=== PATIENT | male | born 1965 | race Caucasian/White ===

== ENCOUNTER 2017-06-24 01:57 | Inpatient (IN) | payer BC, OTHER ==
[~2017-06-24] VITALS: Ht 185.4 cm; Wt 82.8 kg
[2017-06-24] VITALS (19 sets, daily range): BP systolic 116–161; BP diastolic 66–82; PULSE 102–133; RESP 16–27; TEMP 97.3–99.4; O2SAT 87–95
[~2017-06-24 01:57] MED LIST: ADVAI500I PO; BENT20TA PO; CLOP75 PO; DUONI NEB; FLUT50I NASAL; PRED10 PO; SERO200T2 PO; SIME80CH CHEW; SUMA6P SQ
[2017-06-24] MEDS ORDERED: RESP: ALBUTEROL 2.5 MG/IPRATROPIUM 0.5 MG NEB (PRN) ONE (02:09)
[2017-06-24] MEDS: RESP: ALBUTEROL 2.5 MG/IPRATROPIUM 0.5 MG NEB (SCH) INH ×2 (02:14→02:15)
[2017-06-24] MEDS ORDERED: methylPREDNISolone SOD SUCC 125 MG/2 ML VIAL IVP ONE (02:15)
[2017-06-24] MEDS ORDERED: SODIUM CHLORIDE 0.9% FLUSH 10 ML FLUSH IVF PRN ×2 (02:15→10:00)
[2017-06-24 02:29] LABS: BLOOD GAS BASE EXCESS -0.2 mmol/L (-2-2); BLOOD GAS CARBOXYHEMOGLOBIN 1.5 % (0-4); BLOOD GAS HCO3 24 mmol/L (22-26); BLOOD GAS O2 HGB SATURATION 95 % (90-100); BLOOD GAS OXYGEN CONTENT 20.7 Vol % (12.0-20.0); BLOOD GAS PCO2 42 mmHG (38-42); BLOOD GAS PO2 92 mmHG (61-120); BLOOD GAS TOTAL HGB 15.5 G/DL (12.0-16.0); CRITICAL VALUE NO; DRAW SITE LT RADIAL; LITER FLOW 8 L/M; NUMBER OF ARTERIAL PUNCTURES 1; STAT YES; TEMP CORR TO 98.6; ULNAR PULSE PRESENT
[2017-06-24 02:30] LABS: OXYGEN DEVICE NEB TREATMENT
[2017-06-24 02:31] LABS: AUTOMATED NEUTROPHIL # 6.1 TH/MM3 (1.8-7.7); BASOPHIL # 0.1 TH/MM3 (0-0.2); EOSINOPHIL # 1.6 TH/MM3 (0-0.4); EOSINOPHIL % 16.8 % (0.0-4.0); HEMATOCRIT 45.6 % (39.0-51.0); HEMO FLAGS DIFF FINAL; LYMPHOCYTE # 0.9 TH/MM3 (1.0-4.8); MEAN CORPUSCULAR HEMOGLOBIN 31.3 PG (27.0-34.0); MONO % 6.4 % (0.0-8.0); NEUT % 65.8 % (16.0-70.0); PLATELET COUNT 217 TH/MM3 (150-450); RED BLOOD COUNT 4.96 MIL/MM3 (4.50-5.90); RED CELL DISTRIBUTION WIDTH 12.5 % (11.6-17.2); WHITE BLOOD COUNT 9.3 TH/MM3 (4.0-11.0)
[2017-06-24 02:42] LABS: CHLORIDE 107 MEQ/L (98-107); POTASSIUM 3.7 MEQ/L (3.5-5.1); SODIUM (NA) 139 MEQ/L (136-145)
[2017-06-24 02:46] LABS: ANION GAP 10 MEQ/L (5-15); BICARBONATE 22.2 MEQ/L (21.0-32.0); BLOOD UREA NITROGEN 14 MG/DL (7-18)
[2017-06-24 02:47] LABS: APTT (PATIENT) 26.4 SEC (24.3-30.1); PROTHROMBIN TIME - PATIENT 10.7 SEC (9.8-11.6)
[2017-06-24 02:49] LABS: ALT (GPT) 34 U/L (12-78); AST (GOT) 22 U/L (15-37); GLOMERULAR FILTRATION RATE 64 ML/MIN (>89)
[2017-06-24 02:50] LABS: TOTAL BILIRUBIN ADULT 0.6 MG/DL (0.2-1.0)
[2017-06-24 02:51] LABS: CREATINE KINASE 120 U/L (39-308)
[2017-06-24 02:52] LABS: ALKALINE PHOSPHATASE 57 U/L (45-117)
--- NOTE | 2017-06-24 03:00 | RADRPT ---
EXAM DATE/TIME: 06/24/2017 02:43 [facility] COMPARISON: CHEST SINGLE AP, July 17, 2016, 12:35. INDICATIONS : Shortness of breath. MEDICAL HISTORY : Gastroesophageal reflux disease. Asthma. SURGICAL HISTORY : None. ENCOUNTER: Initial ACUITY: 1 day PAIN SCORE: 0/10 LOCATION: Bilateral chest FINDINGS: A single view of the chest demonstrates the lungs to be symmetrically aerated without evidence of mas s, infiltrate or effusion. The cardiomediastinal contours are unremarkable. Osseous structures are intact. CONCLUSION: 1. No active disease. Jeyson Navarro MD on June 24, 2017 at 2:58 Board Certified Radiologist. This report was verified electronically.
[2017-06-24 03:04] LABS: CKMB 0.8 NG/ML (0.5-3.6)
[2017-06-24] MEDS ORDERED: SUMA6P SQ (04:05)
[2017-06-24] MEDS ORDERED: INDA1CAP2 INH (04:05)
[2017-06-24] MEDS ORDERED: QUET1TAB9 PO (04:05)
[2017-06-24] MEDS ORDERED: CLOP75TA PO (04:05)
[2017-06-24] MEDS ORDERED: RESP: ALBUTEROL 2.5 MG/IPRATROPIUM 0.5 MG NEB (SCH) NEB ONE ×2 (05:45→09:30)
[2017-06-24] MEDS ORDERED: SODIUM CHLOR 0.9% 1000 ML INJ 1,000 ML IV ONE (05:45)
--- NOTE | 2017-06-24 05:46 | PD ---
HPI Chief Complaint: Respiratory Symptoms Time Seen by Provider: 03:50 Travel History International Travel<30 days: No Contact w/Intl Traveler<30days: No Traveled to known affect area: No History of Present Illness HPI 51-year-old male presents to the emergency department for complaint of marked shortness of breath and wheezing. Patient has been short of breath for 2 weeks and under the care of his circulating nurse with multiple medication changes trying to optimize his response and decrease/diminished current symptom complaint. Patient denies fever chills productive cough hemoptysis chest pain or pleuritic chest pain. Patient has history of asthma. Patient states no real treatments at home providing no relief. Patient is currently not on antibiotic. Patient lives tobacco use. No recent long distance travel protracted bedrest for surgical procedure or personal history family history of clotting disorder. PFSH Past Medical History Narrative Medical Asthma anxiety TIA hypertension depression splenic laceration with repair; no tobacco use; nursing notes reviewed Arthritis: Yes Asthma: Yes Autoimmune Disease: No Blood Disorders: No Bipolar Disorder: Yes Depression: Yes Heart Rhythm Problems: No Cancer: No Cardiovascular Problems: No High Cholesterol: No Chemotherapy: No Chest Pain: Yes Congestive Heart Failure: No COPD: No Cerebrovascular Accident: Yes (TIA) Diabetes: No Diminished Hearing: No Endocrine: No Gastrointestinal Disorders: No GERD: Yes Glaucoma: No Genitourinary: No Headaches: Yes Hepatitis: No Hiatal Hernia: No Hypertension: No Immune Disorder: No Inguinal Hernia: Yes (REPAIRED) Kidney Stones: No Musculoskeletal: Yes Neurologic: Yes (CLUSTER HEADACHES) Reproductive: No Respiratory: Yes Immunizations Current: No Migraines: Yes Pneumonia: Yes Radiation Therapy: No Renal Failure: No Seizures: No Sickle Cell Disease: No Sleep Apnea: No Thyroid Disease: No Ulcer: No Past Surgical History Abdominal Surgery: Yes (RUPTURED SPEEN WITH MESH) AICD: No Arteriovenous Shunt: No Cardiac Surgery: No Ear Surgery: No Endocrine Surgery: No Eye Surgery: No Genitourinary Surgery: No Insulin Pump: No Joint Replacement: No Oral Surgery: Yes Pacemaker: No Thoracic Surgery: No Other Surgery: Yes (SINUS X 4, SPLEEN) Social History Alcohol Use: No Tobacco Use: No Substance Use: No Allergies-Medications (Allergen,Severity, Reaction): Coded Allergies: aspirin (Unverified Allergy, Severe, Anaphylaxis, 05/27/17) ibuprofen (Unverified Allergy, Severe, Shock, 05/27/17) amoxicillin (Unverified Allergy, Intermediate, Hives, 05/27/17) penicillin G (Unverified Allergy, Intermediate, itching, 05/27/17) Reported Meds & Prescriptions Reported Meds & Active Scripts Active Reported Clopidogrel (Clopidogrel Bisulfate) 75 Mg Tab 75 Mg PO DAILY Quetiapine (Quetiapine Fumarate) 200 Mg Tab 200 Mg PO DAILY Imitrex Inj (Sumatriptan Succinate) 6 Mg/0.5 Ml Inj 6 Mg SQ ONCE PRN May repeat dose in 1 hour if needed. Utibron Neohaler 27.5-15.6 Mcg (Indacaterol/Glycopyrrolate) 27.5 Mcg-15.6 Mcg Cap.w.dev Aerosol INH BID Review of Systems Except as stated in HPI: all other systems reviewed are Neg General / Constitutional: No: Fever, Chills HENT: No: Congestion Cardiovascular: No: Chest Pain or Discomfort Respiratory: Positive: Cough, Shortness of Breath, Wheezing Gastrointestinal: No: Vomiting, Abdominal Pain Genitourinary: No: Flank Pain Musculoskeletal: No: Pain Neurologic: No: Weakness, Dizziness, Syncope Psychiatric: No: Anxiety Hematologic/Lymphatic: No: Lymph Node Enlargement Physical Exam Narrative Gen.: Well-developed well-nourished pleasant male presents in marked respiratory distress with room air O2 saturation of 87% SKIN: Warm and dry. HEAD: Normocephalic. EYES: No scleral icterus. No injection or drainage. NECK: Supple, trachea midline. No JVD or lymphadenopathy. CARDIOVASCULAR: Regular rate and rhythm without murmurs, gallops, or rubs. RESPIRATORY: Breath sounds equal bilaterally diffuse expiratory wheezes with accessory muscle use. GASTROINTESTINAL: Abdomen soft, non-tender, nondistended. MUSCULOSKELETAL: No cyanosis, or edema. BACK: Nontender without obvious deformity. No CVA tenderness. Data Data Last Documented VS Vital Signs Date Time Temp Pulse Resp B/P (MAP) Pulse Ox O2 Delivery O2 Flow Rate FiO2 06/24/17 07:35 116 20 119/67 (84) 94 06/24/17 06:00 Nasal Cannula 3.00 06/24/17 02:20 97.7 Orders Orders Albuterol-Ipratropium Neb (Duoneb Neb) (06/24/17 02:09) Complete Blood Count With Diff (06/24/17 02:10) Comprehensive Metabolic Panel (06/24/17 02:10) B-Type Natriuretic Peptide (06/24/17 02:10) Act Partial Throm Time (Ptt) (06/24/17 02:10) Prothrombin Time / Inr (Pt) (06/24/17 02:10) Ckmb (Isoenzyme) Profile (06/24/17 02:10) Troponin I (06/24/17 02:10) Arterial Blood Gas (Abg) (06/24/17 02:10) Influenzae A/B Antigen (06/24/17 02:10) Blood Culture (06/24/17 02:10) Iv Access Insert/Monitor (06/24/17 02:10) Electrocardiogram (06/24/17 02:10) Ecg Monitoring (06/24/17 02:10) Oximetry (06/24/17 02:10) Oxygen Administration (06/24/17 02:10) Chest, Single Ap (06/24/17 02:10) Sodium Chloride 0.9% Flush (Ns Flush) (06/24/17 02:15) Methylprednisolone So Succ Inj (Solumedr (06/24/17 02:15) Albuterol-Ipratropium Neb (Duoneb Neb) (06/24/17 02:15) CKMB (06/24/17 02:25) CKMB% (06/24/17 02:25) Sodium Chlor 0.9% 1000 Ml Inj (Ns 1000 M (06/24/17 05:45) Albuterol-Ipratropium Neb (Duoneb Neb) (06/24/17 05:45) Labs Laboratory Tests Test 06/24/17 02:15 06/24/17 02:25 Blood Gas Puncture Site LT RADIAL Blood Gas Patient Temperature 98.6 Blood Gas HCO3 24 mmol/L Blood Gas Base Excess -0.2 mmol/L Blood Gas Oxygen Saturation 95 % Arterial Blood pH 7.38 Arterial Blood Partial Pressure CO2 42 mmHG Arterial Blood Partial Pressure O2 92 mmHG Arterial Blood Oxygen Content 20.7 Vol % Arterial Blood Carboxyhemoglobin 1.5 % Arterial Blood Methemoglobin 1.0 % Blood Gas Hemoglobin 15.5 G/DL Oxygen Delivery Device NEB TREATMENT Blood Gas Liter Flow 8 L/M White Blood Count 9.3 TH/MM3 Red Blood Count 4.96 MIL/MM3 Hemoglobin 15.5 GM/DL Hematocrit 45.6 % Mean Corpuscular Volume 92.0 FL Mean Corpuscular Hemoglobin 31.3 PG Mean Corpuscular Hemoglobin Concent 34.0 % Red Cell Distribution Width 12.5 % Platelet Count 217 TH/MM3 Mean Platelet Volume 8.4 FL Neutrophils (%) (Auto) 65.8 % Lymphocytes (%) (Auto) 10.0 % Monocytes (%) (Auto) 6.4 % Eosinophils (%) (Auto) 16.8 % Basophils (%) (Auto) 1.0 % Neutrophils # (Auto) 6.1 TH/MM3 Lymphocytes # (Auto) 0.9 TH/MM3 Monocytes # (Auto) 0.6 TH/MM3 Eosinophils # (Auto) 1.6 TH/MM3 Basophils # (Auto) 0.1 TH/MM3 CBC Comment DIFF FINAL Differential Comment Prothrombin Time 10.7 SEC Prothromb Time International Ratio 1.0 RATIO Activated Partial Thromboplast Time 26.4 SEC Blood Urea Nitrogen 14 MG/DL Creatinine 1.20 MG/DL Random Glucose 127 MG/DL Total Protein 7.3 GM/DL Albumin 3.7 GM/DL Calcium Level 8.7 MG/DL Alkaline Phosphatase 57 U/L Aspartate Amino Transf (AST/SGOT) 22 U/L Alanine Aminotransferase (ALT/SGPT) 34 U/L Total Bilirubin 0.6 MG/DL Sodium Level 139 MEQ/L Potassium Level 3.7 MEQ/L Chloride Level 107 MEQ/L Carbon Dioxide Level 22.2 MEQ/L Anion Gap 10 MEQ/L Estimat Glomerular Filtration Rate 64 ML/MIN Total Creatine Kinase 120 U/L Creatine Kinase MB 0.8 NG/ML Troponin I LESS THAN 0.02 NG/ML B-Type Natriuretic Peptide LESS THAN 2 PG/ML MDM Medical Decision Making Medical Screen Exam Complete: Yes Emergency Medical Condition: Yes Medical Record Reviewed: Yes Interpretation(s) Sinus rhythm rate [address] elevation or injury pattern or ectopy noted Last Impressions Chest X-Ray 06/24/170 Signed Impressions: Service Date/Time: Saturday, June 24, 2017 02:43 - CONCLUSION: 1. No active disease. Jeyson Navarro MD CBC & BMP Diagram 06/24/17 02:25 Total Protein 7.3, Albumin 3.7, Calcium Level 8.7, Alkaline Phosphatase 57, Aspartate Amino Transf (AST/SGOT) 22, Alanine Aminotransferase (ALT/SGPT) 34, Total Bilirubin 0.6 Vital Signs Date Time Temp Pulse Resp B/P (MAP) Pulse Ox O2 Delivery O2 Flow Rate FiO2 06/24/17 07:35 116 20 119/67 (84) 94 06/24/17 06:00 93 Nasal Cannula 3.00 06/24/17 05:05 102 20 116/72 (87) 94 06/24/17 04:07 107 20 119/77 (91) 92 06/24/17 03:57 113 20 06/24/17 02:25 94 Room Air 06/24/17 02:25 108 20 135/69 (91) 95 Nasal Cannula 2.00 06/24/17 02:20 97.7 112 20 122/78 (93) 87 Differential Diagnosis Dyspnea exacerbation asthma bronchitis pneumonia PE CHF ACS pneumothorax Narrative Course Patient placed on administrative executive IV access obtained specimens collected and sent for resulting patient administered DuoNeb updrafts 3 along with Solu- Medrol 125 mg IV EKG performed shows sinus rhythm without evidence of acute injury Patient given bolus of normal saline Patient continued on supplemental oxygen and appears more comfortable continues to have diffuse wheezing patient aware of lab results chest x-ray and EKG results with recommendation for admission patient taken off of supplemental oxygen states he must her home and will not stay patient does show evidence of the saturating with room air O2 saturation of 92% Patient refuses admission is aware of risk of leaving regarding ongoing respiratory decline respiratory arrest and patient refuses to be admitted and will sign out AGAINST MEDICAL ADVICE AMA: The risks of leaving against medical advice without further evaluation treatment were discussed with the patient. These risks include cardiac dysfunction, cardiac dysrhythmia, possible heart attack, possible stroke or . The patient indicated understanding of these risks and appeared to have the capacity to make this decision. Diagnosis Primary Impression: Severe asthma Additional Instructions: Even though he decided to sign out AGAINST MEDICAL ADVICE please do not hesitate to return for any change in her condition or any concerns Disposition: 07 AGAINST MEDICAL ADVICE Condition: Stable Carmen Wood MD Jun 24, 2017 05:46
[2017-06-24] MEDS ORDERED: MAGNESIUM SULFATE 1 GM PREMIX 100 ML IV ONE (09:30)
[2017-06-24] MEDS ORDERED: ALUMINUM/MAGNESIUM/SIMETH 30 ML CUP PO ONE (10:00)
[2017-06-24] MEDS ORDERED: PANTOPRAZOLE SOD 40 MG DELAYED RELEASE TAB PO ONE (10:00)
--- NOTE | 2017-06-24 10:39 | HHI.HP ---
[facility] Unknown Admission Diagnosis Severe Asthma Diagnoses: Chief Complaint: Shortness of breath Travel History International Travel<30 Days: No Contact w/Intl Traveler <30 Da: No Traveled to Known Affected Are: No History of Present Illness 51-year-old male with a medical history significant for asthma, anxiety, TIA, hypertension who presented with severe shortness of breath. Patient reports for the past 4-6 weeks he has been having persistent shortness of breath. He believes this started as a common cold. He has been followed by his title i paraprofessional Dr. Higgins and has been tried on steroids and many different inhalers without much relief. His symptoms got worse yesterday which brought him to the emergency room. He has been having a persistent cough as well. He denies chest pain or pressure. In the emergency room, the patient was found to be hypoxemic. He has been requiring oxygen. Review of Systems Constitutional: DENIES: Fever, Chills Respiratory: COMPLAINS OF: Cough, Shortness of breath Cardiovascular: DENIES: Chest pain Gastrointestinal: DENIES: Nausea, Vomiting Except as stated in HPI: all other systems reviewed are Neg Past Family Social History Past Medical History Asthma Anxiety Hypertension TIA with no residual deficits. Past Surgical History Hernia repair Reported Medications Reported Meds & Active Scripts Active Reported Clopidogrel (Clopidogrel Bisulfate) 75 Mg Tab 75 Mg PO DAILY Quetiapine (Quetiapine Fumarate) 200 Mg Tab 200 Mg PO DAILY Imitrex Inj (Sumatriptan Succinate) 6 Mg/0.5 Ml Inj 6 Mg SQ ONCE PRN May repeat dose in 1 hour if needed. Utibron Neohaler 27.5-15.6 Mcg (Indacaterol/Glycopyrrolate) 27.5 Mcg-15.6 Mcg Cap.w.dev Aerosol INH BID Allergies: Coded Allergies: aspirin (Unverified Allergy, Severe, Anaphylaxis, 05/27/17) ibuprofen (Unverified Allergy, Severe, Shock, 05/27/17) amoxicillin (Unverified Allergy, Intermediate, Hives, 05/27/17) penicillin G (Unverified Allergy, Intermediate, itching, 05/27/17) Family History Reviewed and is noncontributory. Social History Patient never smoked. No alcohol or illicit drug use. Physical Exam Vital Signs Vital Signs Date Time Temp Pulse Resp B/P (MAP) Pulse Ox O2 Delivery O2 Flow Rate FiO2 06/24/17 10:05 93 Nasal Cannula 4.00 06/24/17 09:23 123 24 129/71 (90) 90 Nasal Cannula 2.00 06/24/17 07:35 116 20 119/67 (84) 94 06/24/17 06:00 93 Nasal Cannula 3.00 06/24/17 05:05 102 20 116/72 (87) 94 06/24/17 04:07 107 20 119/77 (91) 92 06/24/17 03:57 113 20 06/24/17 02:25 94 Room Air 06/24/17 02:25 108 20 135/69 (91) 95 Nasal Cannula 2.00 06/24/17 02:20 97.7 112 20 122/78 (93) 87 Physical Exam GENERAL: This is a well-nourished, well-developed patient, in mild respiratory distress. Spasmodic cough. SKIN: No rashes, ecchymoses or lesions. Cool and dry. HEAD: Atraumatic. Normocephalic. No temporal or scalp tenderness. EYES: Pupils equal round and reactive. Extraocular motions intact. No scleral icterus. No injection or drainage. ENT: Nose without bleeding, purulent drainage or septal hematoma. Throat without erythema, tonsillar hypertrophy or exudate. Uvula midline. Airway patent. NECK: Trachea midline. No JVD or lymphadenopathy. Supple, nontender, no meningeal signs. CARDIOVASCULAR: Regular rate and rhythm without murmurs, gallops, or rubs. RESPIRATORY: Diffuse wheezing throughout. GASTROINTESTINAL: Abdomen soft, non-tender, nondistended. No hepato-splenomegaly , or palpable masses. No guarding. MUSCULOSKELETAL: Extremities without clubbing, cyanosis, or edema. No joint tenderness, effusion, or edema noted. No calf tenderness. Negative Homans sign bilaterally. NEUROLOGICAL: Awake and alert. Cranial nerves II through XII intact. Motor and sensory grossly within normal limits. Five out of 5 muscle strength in all muscle groups. Normal speech. Laboratory Laboratory Tests Test 06/24/17 02:15 06/24/17 02:25 Blood Gas Puncture Site LT RADIAL Blood Gas Patient Temperature 98.6 Blood Gas HCO3 24 Blood Gas Base Excess -0.2 Blood Gas Oxygen Saturation 95 Arterial Blood pH 7.38 Arterial Blood Partial Pressure CO2 42 Arterial Blood Partial Pressure O2 92 Arterial Blood Oxygen Content 20.7 Arterial Blood Carboxyhemoglobin 1.5 Arterial Blood Methemoglobin 1.0 Blood Gas Hemoglobin 15.5 Oxygen Delivery Device NEB TREATMENT Blood Gas Liter Flow 8 White Blood Count 9.3 Red Blood Count 4.96 Hemoglobin 15.5 Hematocrit 45.6 Mean Corpuscular Volume 92.0 Mean Corpuscular Hemoglobin 31.3 Mean Corpuscular Hemoglobin Concent 34.0 Red Cell Distribution Width 12.5 Platelet Count 217 Mean Platelet Volume 8.4 Neutrophils (%) (Auto) 65.8 Lymphocytes (%) (Auto) 10.0 Monocytes (%) (Auto) 6.4 Eosinophils (%) (Auto) 16.8 Basophils (%) (Auto) 1.0 Neutrophils # (Auto) 6.1 Lymphocytes # (Auto) 0.9 Monocytes # (Auto) 0.6 Eosinophils # (Auto) 1.6 Basophils # (Auto) 0.1 CBC Comment DIFF FINAL Differential Comment Prothrombin Time 10.7 Prothromb Time International Ratio 1.0 Activated Partial Thromboplast Time 26.4 Blood Urea Nitrogen 14 Creatinine 1.20 Random Glucose 127 Total Protein 7.3 Albumin 3.7 Calcium Level 8.7 Alkaline Phosphatase 57 Aspartate Amino Transf (AST/SGOT) 22 Alanine Aminotransferase (ALT/SGPT) 34 Total Bilirubin 0.6 Sodium Level 139 Potassium Level 3.7 Chloride Level 107 Carbon Dioxide Level 22.2 Anion Gap 10 Estimat Glomerular Filtration Rate 64 Total Creatine Kinase 120 Creatine Kinase MB 0.8 Troponin I LESS THAN 0.02 B-Type Natriuretic Peptide LESS THAN 2 Date/Time Source Procedure Growth Status 06/24/17 09:50 Blood Peripheral Aerobic Blood Culture Pending Received 06/24/17 09:50 Blood Peripheral Anaerobic Blood Culture Pending Received 06/24/17 02:55 Nasal Washing Influenza Types A,B Antigen (NANDO) - Final NEGATIVE FOR FLU A AND B ANTIGEN.... Complete Result Diagram: 06/24/1722406/24/17224 Caprini VTE Risk Assessment Caprini VTE Risk Assessment: Mod/High Risk (score >= 2) Caprini Risk Assessment Model Point Value = 1 Point Value = 2 Point Value = 3 Point Value = 5 Age 41-60 Minor surgery BMI > 25 kg/m2 Swollen legs Varicose veins or History of unexplained or recurrent spontaneous Oral contraceptives or hormone replacement Sepsis (< 1 month) Serious lung disease, including pneumonia (< 1 month) Abnormal pulmonary function Acute myocardial infarction Congestive heart failure (< 1 month) History of inflammatory bowel disease Medical patient at bed rest Age 61-74 Arthroscopic surgery Major open surgery (> 45 min) Laparoscopic surgery (> 45 min) Malignancy Confined to bed (> 72 hours) Immobilizing plaster cast Central venous access Age >= 75 History of VTE Family history of VTE Factor V Leiden Prothrombin [id number] Lupus anticoagulant Anticardiolipin antibodies Elevated serum homocysteine Heparin-induced thrombocytopenia Other congenital or acquired thrombophilia Stroke (< 1 month) Elective arthroplasty Hip, pelvis, or leg fracture Acute spinal cord injury (< 1 month) Prophylaxis Regimen Total Risk Factor Score Risk Level Prophylaxis Regimen 0-1 Low Early ambulation 2 Moderate Order ONE of the following: *Sequential Compression Device (SCD) *Heparin 5000 units SQ BID 3-4 Higher Order ONE of the following medications: *Heparin 5000 units SQ TID *Enoxaparin/Lovenox 40 mg SQ daily (WT < 150 kg, CrCl > 30 mL/min) *Enoxaparin/Lovenox 30 mg SQ daily (WT < 150 kg, CrCl > 10-29 mL/min) *Enoxaparin/Lovenox 30 mg SQ BID (WT < 150 kg, CrCl > 30 mL/min) AND/OR *Sequential Compression Device (SCD) 5 or more Highest Order ONE of the following medications: *Heparin 5000 units SQ TID (Preferred with Epidurals) *Enoxaparin/Lovenox 40 mg SQ daily (WT < 150 kg, CrCl > 30 mL/min) *Enoxaparin/Lovenox 30 mg SQ daily (WT < 150 kg, CrCl > 10-29 mL/min) *Enoxaparin/Lovenox 30 mg SQ BID (WT < 150 kg, CrCl > 30 mL/min) AND *Sequential Compression Device (SCD) Assessment and Plan Problem List: (1) Severe asthma ICD Code: J45.998 - Severe asthma Status: Acute (2) Hypoxemia ICD Code: R09.02 - Hypoxemia Assessment and Plan 51-year-old male with asthma exacerbation. Symptoms have been ongoing for the past few weeks. He is hypoxic requiring oxygen. Acute hypoxemic respiratory failure: Probably secondary to asthma exacerbation. However symptoms have been ongoing for weeks with no significant response to steroids and inhalers. - Consult pulmonology for assistance - Obtain CTA to rule out PE and better evaluate the lung parenchyma - Continue IV Solu-Medrol, scheduled breathing treatments, supplemental oxygen, incentive spirometer. History of TIA: Continue Plavix Bipolar disorder: Continue Seroquel GI prophylaxis: PPI. Stool softener PRN constipation. DVT PPx: Lovenox Discussed Condition With ER physician, Dr. Wood. Physician Certification 2 Midnight Certification Type: Admission for Inpatient Services Order for Inpatient Services The services are ordered in accordance with Medicare regulations or non- Medicare payer requirements, as applicable. In the case of services not specified as inpatient-only, they are appropriately provided as inpatient services in accordance with the 2-midnight benchmark. Estimated LOS (days): 3 days is the estimated time the patient will need to remain in the hospital, assuming treatment plan goals are met and no additional complications. Post-Hospital Plan: Home Maribel Arthur MD Jun 24, 2017 10:39
[2017-06-24] MEDS ORDERED: SODIUM CHLORIDE 0.9% FLUSH 10 ML FLUSH IV FLUSH PRN (10:45)
[2017-06-24] MEDS ORDERED: SUMAtriptan INJ 6 MG/0.5 ML VIAL SQ PRN (10:45)
[2017-06-24] MEDS: ENOXAPARIN SODIUM 40 MG/0.4 ML SYRINGE SQ SCH (11:11)
[2017-06-24] MEDS: SODIUM CHLOR 0.45% 1000 ML INJ 1,000 ML IV SCH ×2 (11:12→20:28)
[2017-06-24] MEDS ORDERED: IOHEXOL 350 MG/ML 10 ML VIAL (for RAD DIAG) IVCONTRAST ONE (11:36)
[2017-06-24] MEDS: methylPREDNISolone SOD SUCC 125 MG/2 ML VIAL IV PUSH SCH ×3 (11:55→23:24)
[2017-06-24] MEDS: RESP: ALBUTEROL 2.5 MG/IPRATROPIUM 0.5 MG NEB (SCH) NEB ×3 (12:02→19:25)
--- NOTE | 2017-06-24 12:10 | RADRPT ---
EXAM DATE/TIME: 06/24/2017 11:28 [facility] COMPARISON: No previous studies available for comparison. INDICATIONS : Short of breath. evaluate for embolism. IV CONTRAST: 65 cc Omnipaque 350 (iohexol) IV RADIATION DOSE: 12.08 CTDIvol (mGy) MEDICAL HISTORY : Asthma. SURGICAL HISTORY : None. ENCOUNTER: Initial ACUITY: 2 days PAIN SCALE: 0/10 LOCATION: chest TECHNIQUE: Volumetric scanning of the chest was performed using a pulmonary embolism protocol MIP images were re constructed. Using automated exposure control and adjustment of the mA and/or kV according to patien t size, radiation dose was kept as low as reasonably achievable to obtain optimal diagnostic quality images. DICOM format image data is available electronically for review and comparison. Follow-up recommendations for detected pulmonary nodules are based at a minimum on nodule size and pa tient risk factors according to Fleischner Society Guidelines. FINDINGS: PULMONARY ARTERIES: No filling defects are seen in the pulmonary arteries through the segmental level. LUNGS: 9 mm nodular focal consolidation in the right upper lobe with adjacent groundglass opacities near the apex. There is focal bronchiectasis in the right upper lobe near the apex. Additionally, multiple br onchioles are partially or completely opacified in the lower lobes bilaterally particularly in the li ngula and right middle lobe with adjacent focal nodular parenchymal opacities. Scattering of nodular opacities in the medial right lower lobe. PLEURAE: There is no pleural thickening or pleural effusion. MEDIASTINUM: Subcentimeter mediastinal and right hilar lymph nodes. Heart appears unremarkable without significant pericardial effusion. Thoracic aorta is normal in caliber. MUSCULOSKELETAL: Within normal limits for patient age. MISCELLANEOUS: The visualized upper abdominal organs demonstrate no acute abnormality. CONCLUSION: 1. No CT evidence for pulmonary artery embolism. 2. Bronchial wall thickening, bronchial opacification, and focal bronchiectasis most prominently in t he right upper lobe, right middle lobe and lingula with associated nodular opacities most prominent i n the right upper lobe, lingula, and medial right lower lobe. 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 Consider pu lmonary consultation. Richard Joyner MD on June 24, 2017 at 11:53 Board Certified Radiologist. This report was verified electronically.
--- NOTE | 2017-06-24 13:55 | EKG ---
Date Performed: 06/24/2017 Time Performed: 02:10:26 PTAGE: 51 years EKG: Sinus rhythm NORMAL ECG Compared to prior tracing no significant change PREVIOUS TRACING : 06/03/2016 08.18 DOCTOR: Janneth Rose Interpretating Date/Time 06/24/2017 13:52:24
[2017-06-24] MEDS: ALUMINUM/MAGNESIUM/SIMETH 30 ML CUP PO PRN ×2 (17:29→23:24)
[2017-06-24] MEDS: BUDESONIDE-FORMOTEROL 160/4.5 MCG INHALER INH SCH (20:28)
[2017-06-24] MEDS: SODIUM CHLORIDE 0.9% FLUSH 10 ML FLUSH IV FLUSH SCH (20:29)
[2017-06-24] MEDS ORDERED: SODIUM CHLORIDE 0.9% FLUSH 10 ML FLUSH IV FLUSH SCH (21:00)
[2017-06-24] MEDS: QUEtiapine FUMARATE 200 MG TAB PO SCH (23:55)
[2017-06-25] VITALS (16 sets, daily range): BP systolic 107–140; BP diastolic 68–90; PULSE 94–112; RESP 14–24; TEMP 97–98.5; O2SAT 88–93
[2017-06-25] MEDS: RESP: ALBUTEROL 2.5 MG/IPRATROPIUM 0.5 MG NEB (SCH) NEB ×7 (00:01→23:48)
[2017-06-25 05:10] LABS: AUTOMATED NEUTROPHIL # 13.8 TH/MM3 (1.8-7.7); BASOPHIL % 0.1 % (0.0-2.0); HEMATOCRIT 40.2 % (39.0-51.0); LYMPH % 4.8 % (9.0-44.0); LYMPHOCYTE # 0.7 TH/MM3 (1.0-4.8); MEAN CELL VOLUME 91.6 FL (80.0-100.0); MEAN CORPUSCULAR HEMOGLOBIN 32.2 PG (27.0-34.0); MEAN CORPUSCULAR HGB CONC 35.2 % (32.0-36.0); MONO % 2.6 % (0.0-8.0); NEUT % 92.5 % (16.0-70.0); PLATELET COUNT 225 TH/MM3 (150-450); RED BLOOD COUNT 4.39 MIL/MM3 (4.50-5.90); RED CELL DISTRIBUTION WIDTH 12.7 % (11.6-17.2); WHITE BLOOD COUNT 14.9 TH/MM3 (4.0-11.0)
[2017-06-25 05:20] LABS: POTASSIUM 3.7 MEQ/L (3.5-5.1)
[2017-06-25 05:22] LABS: HEMO FLAGS DIFF FINAL
[2017-06-25 05:23] LABS: BICARBONATE 24.1 MEQ/L (21.0-32.0)
[2017-06-25] MEDS: methylPREDNISolone SOD SUCC 125 MG/2 ML VIAL IV PUSH SCH ×2 (05:59→12:27)
[2017-06-25] MEDS: CLOPIDOGREL 75 MG TAB PO SCH (08:20)
[2017-06-25] MEDS: BUDESONIDE-FORMOTEROL 160/4.5 MCG INHALER INH SCH ×2 (08:20→21:29)
[2017-06-25] MEDS: PANTOPRAZOLE SOD 40 MG DELAYED RELEASE TAB PO SCH (08:20)
[2017-06-25] MEDS: SODIUM CHLORIDE 0.9% FLUSH 10 ML FLUSH IV FLUSH SCH ×2 (08:20→21:30)
[2017-06-25] MEDS ORDERED: QUEtiapine FUMARATE 200 MG TAB PO SCH (09:00)
[2017-06-25] MEDS: ENOXAPARIN SODIUM 40 MG/0.4 ML SYRINGE SQ SCH (12:26)
--- NOTE | 2017-06-25 12:59 | MB ---
cc: TONY CARCAMO MD DATE OF CONSULTATION: 06/24/[address] Maribel Arthur. REASON FOR CONSULTATION Bronchial asthma exacerbation. HISTORY OF PRESENT ILLNESS The patient is a 51-year-old white male with longstanding history of asthma which is getting worse over the last 6 weeks or so. He took some antibiotic and did not get better. Over the last few weeks his breathing is getting much worse Normally he uses multiple inhaler and nebulizer treatment but no oxygen. Because of worsening of his symptoms he came to the hospital. He had a workup done. He had a CTA of the chest done which shows no evidence of pulmonary embolism. He has bronchial wall thickening and opacification with focal bronchiectasis. Findings consistent with inflammatory process in the lung , possible allergic bronchopulm. aspergillosis. His INR is 1.0, WBC count 9.3, hemoglobin 15.5, hematocrit 45, MCV 92, platelet count 217, eosinophil count is 16.8%. Sodium 139, potassium 3.7, chloride 107, CO2 22, BUN 14, creatinine 1.20. Blood gas on nasal cannula pH 7.38, pC02 42, pO2 92, bicarb 24. PAST MEDICAL HISTORY Significant for: 1. History of bronchial asthma. 2. Multiple TIAs. 3. Hypertension. 4. Anxiety disorder. MEDICATION He is currently takin. Plavix 75 mg a day. 2. Seroquel 200 mg a day. 3. Protonix 40 mg a day. 4. Solu-Medrol 60 mg q. 6-hours. 5. Lovenox 40 mg a day. 6. Albuterol/Atrovent nebulizer treatment. 7. Imitrex as needed for cluster headaches. ALLERGIES Allergy to AMOXICILLIN, ASPIRIN, IBUPROFEN, PENICILLIN G. SOCIAL HISTORY , lives with his children. He works at the [employer]. SOCIAL HISTORY Remote history of smoking. No alcohol use. FAMILY HISTORY Unremarkable. REVIEW OF SYSTEMS Normally he is up, around and active. He was taking steroids for many years which he weaned himself out. No DVT or pulmonary embolism. PHYSICAL EXAMINATION GENERAL: Well-nourished male, mild shortness of breath, not in acute distress. VITAL SIGNS: Blood pressure 161/74, heart rate 116, respirations 22, temperature 98. HEENT: Pupils are equal, round and reactive. Oral mucosa normal. Nasal mucosa normal. Neck: Supple. JVP not raised. CHEST: He has expiratory rhonchi. CVS: S1, S2 normal. ABDOMEN: Soft, nontender, nondistended. Bowel sounds present. EXTREMITIES: No edema. IMPRESSION 1. Bronchial asthma exacerbation. 2. Hypoxia. No evidence of pulmonary embolism. 3. Scattered infiltrate in the lung, in the right upper lobe and lingula with bronchiectatic changes, need to rule out possibility of allergic brncopulmonary aspergillosis. 4. Eosinophilia. PLAN I discussed with the patient continued antibiotic and steroids. aerosol treatment Symbicort twice a day. Check his sputum culture. He may need bronchoscopy. Further treatment will depend on the course in the hospital. Thank you Dr. Arthur for the consultation. Tony Carcamo MD ADA/TLL /3:03 PM /12:44 PM GABI
--- NOTE | 2017-06-25 17:06 | HHI.PR ---
Objective Vitals Vital Signs Date Time Temp Pulse Resp B/P (MAP) Pulse Ox O2 Delivery O2 Flow Rate FiO2 06/25/17 15:58 92 Nasal Cannula 6.00 06/25/17 14:50 97.3 112 15 122/75 (91) 93 06/25/17 12:01 88 Nasal Cannula 4.00 06/25/17 10:00 100 06/25/17 09:00 106 06/25/17 08:18 97.9 112 24 107/68 (81) 06/25/17 08:00 90 Nasal Cannula 6.00 06/25/17 08:00 106 06/25/17 07:00 103 06/25/17 04:00 98.4 110 14 136/71 (92) 91 06/25/17 04:00 110 06/25/17 00:03 93 Nasal Cannula 6.00 06/25/17 00:00 110 06/25/17 00:00 98.5 110 18 131/78 (95) 93 06/24/17 20:00 90 Nasal Cannula 6.00 06/24/17 20:00 99.4 133 22 151/74 (99) 90 06/24/17 20:00 133 06/24/17 19:20 91 Nasal Cannula 6.00 I/O 06/24/17 06/24/17 06/24/17 06/25/17 06/25/17 06/25/17 07:00 15:00 23:00 07:00 15:00 23:00 Intake Total 819 ml 240 ml Output Total 450 ml 700 ml Balance 369 ml -460 ml Intake Oral 480 ml 240 ml IV Total 339 ml Output Urine Total 450 ml 700 ml # Voids 1 # Bowel Movements 1 0 Result Diagram: 06/25/17 0440 06/25/17 0440 A/P Problem List: (1) Severe asthma ICD Code: J45.998 - Severe asthma Status: Acute (2) Hypoxemia ICD Code: R09.02 - Hypoxemia Milan Holden MD Jun 25, 2017 17:06
--- NOTE | 2017-06-25 17:24 | HHI.PR ---
Subjective Remarks sob improving still coughing but better denies fevers/chills states his oxygen level goes down if he removes his oxygen Objective Vitals Vital Signs Date Time Temp Pulse Resp B/P (MAP) Pulse Ox O2 Delivery O2 Flow Rate FiO2 06/25/17 15:58 92 Nasal Cannula 6.00 06/25/17 14:50 97.3 112 15 122/75 (91) 93 06/25/17 12:01 88 Nasal Cannula 4.00 06/25/17 10:00 100 06/25/17 09:00 106 06/25/17 08:18 97.9 112 24 107/68 (81) 06/25/17 08:00 90 Nasal Cannula 6.00 06/25/17 08:00 106 06/25/17 07:00 103 06/25/17 04:00 98.4 110 14 136/71 (92) 91 06/25/17 04:00 110 06/25/17 00:03 93 Nasal Cannula 6.00 06/25/17 00:00 110 06/25/17 00:00 98.5 110 18 131/78 (95) 93 06/24/17 20:00 90 Nasal Cannula 6.00 06/24/17 20:00 99.4 133 22 151/74 (99) 90 06/24/17 20:00 133 06/24/17 19:20 91 Nasal Cannula 6.00 I/O 06/24/17 06/24/17 06/24/17 06/25/17 06/25/17 06/25/17 07:00 15:00 23:00 07:00 15:00 23:00 Intake Total 819 ml 240 ml Output Total 450 ml 700 ml Balance 369 ml -460 ml Intake Oral 480 ml 240 ml IV Total 339 ml Output Urine Total 450 ml 700 ml # Voids 1 # Bowel Movements 1 0 Result Diagram: 06/25/17 0440 06/25/17 0440 Imaging Last Impressions Chest X-Ray 06/24/17 0210 Signed Impressions: Service Date/Time: Saturday, June 24, 2017 02:43 - CONCLUSION: 1. No active disease. Jeyson Navarro MD CT Angiography 06/24/17 0000 Signed Impressions: Service Date/Time: Saturday, June 24, 2017 11:28 - CONCLUSION: 1. No CT evidence for pulmonary artery embolism. 2. Bronchial wall thickening, bronchial opacification, and focal bronchiectasis most prominently in the right upper lobe, right middle lobe and lingula with associated nodular opacities most prominent in the right upper lobe, lingula, and medial right lower lobe. Overall findings are most consistent with an inflammatory/infectious etiology including allergic bronchopulmonary aspergillosis. Consider pulmonary consultation. Richard Joyner MD Objective Remarks AAOx3, nad sitting in bed diffuse bilateral exp wheezing no edema in legs no jvd Medications and IVs Current Medications Medications (Trade) Dose Ordered Sig/Collin Route Start Time Stop Time Status Last Admin (NS Flush) 2 ml BID IV FLUSH 06/24/17 21:00 06/25/17 08:20 (NS Flush) 2 ml UNSCH PRN IV FLUSH 06/24/17 10:45 (Albuterol Neb) 2.5 mg Q2HR NEB PRN NEB 06/24/17 10:45 (Duoneb Neb) 1 ampule Q4HR NEB NEB 06/24/17 12:00 06/25/17 15:53 (SoluMEDROL INJ) 60 mg Q6HR IV PUSH 06/24/17 12:00 06/25/17 12:27 (Lovenox Inj) 40 mg Q24H SQ 06/24/17 11:00 06/25/17 12:26 (Plavix) 75 mg DAILY PO 06/25/17 09:00 06/25/17 08:20 (Imitrex Inj) 6 mg ONCE PRN SQ 06/24/17 10:45 07/01/17 10:44 (Protonix) 40 mg DAILY PO 06/25/17 09:00 06/25/17 08:20 (Symbicort 160-4.5 Inh) 2 puff Q12HR INH 06/24/17 21:00 06/25/17 08:20 (Mag-Al Plus Susp Liq) 30 ml Q6H PRN PO 06/24/17 16:45 06/24/17 23:24 (SEROquel) 200 mg HS PO 06/24/17 23:29 06/24/17 23:55 A/P Problem List: (1) Acute asthma exacerbation ICD Code: J45.901 - Unspecified asthma with (acute) exacerbation (2) Severe asthma ICD Code: J45.998 - Severe asthma Status: Acute (3) Acute hypoxemic respiratory failure ICD Code: J96.01 - Acute respiratory failure with hypoxia Assessment and Plan Continue to monitor on the medical floor. Continue supplemental oxygen to keep oxygen saturation more than 92%. Continue IV steroids - taper dose to 40 mg IV every 8 hours. Will start patient on Iv Levaquin Monitor cbc w diff appreciate pulmonary recommendations - might need bronch to r/o pulmonary aspergillosis So far blood cultures negative 1. Negative flu A and B antigen Milan Holden MD Jun 25, 2017 17:24
[2017-06-25] MEDS: LEVOFLOXACIN 750 MG PREMIX INJ 150 ML IV SCH (17:41)
[2017-06-25] MEDS: LACTOBACILLUS ACIDOPHILUS TAB PO SCH (17:41)
--- NOTE | 2017-06-25 19:19 | HHI.PR ---
Subjective Remarks 51 YOWM with br asthma exac, bronchitis, hypoxia On 02 5LNC Desaturates on ambulation no fever Objective Vital Signs Vital Signs Date Time Temp Pulse Resp B/P (MAP) Pulse Ox O2 Delivery O2 Flow Rate FiO2 06/25/17 18:57 97.0 97 18 133/90 (104) 93 06/25/17 15:58 92 Nasal Cannula 6.00 06/25/17 14:50 97.3 112 15 122/75 (91) 93 06/25/17 12:01 88 Nasal Cannula 4.00 06/25/17 10:00 100 06/25/17 09:00 106 06/25/17 08:18 97.9 112 24 107/68 (81) 06/25/17 08:00 90 Nasal Cannula 6.00 06/25/17 08:00 106 06/25/17 07:00 103 06/25/17 04:00 98.4 110 14 136/71 (92) 91 06/25/17 04:00 110 06/25/17 00:03 93 Nasal Cannula 6.00 06/25/17 00:00 110 06/25/17 00:00 98.5 110 18 131/78 (95) 93 06/24/17 20:00 90 Nasal Cannula 6.00 06/24/17 20:00 99.4 133 22 151/74 (99) 90 06/24/17 20:00 133 06/24/17 19:20 91 Nasal Cannula 6.00 I/O 06/24/17 06/24/17 06/24/17 06/25/17 06/25/17 06/25/17 07:00 15:00 23:00 07:00 15:00 23:00 Intake Total 819 ml 240 ml 200 ml Output Total 450 ml 700 ml Balance 369 ml -460 ml 200 ml Intake Oral 480 ml 240 ml 200 ml IV Total 339 ml Output Urine Total 450 ml 700 ml # Voids 1 3 # Bowel Movements 1 0 0 Result Diagram: 06/25/1743906/25/17439 Objective Remarks GENERAL: WBWn WM, mild sob SKIN: Warm and dry. HEAD: Normocephalic. EYES: No scleral icterus. No injection or drainage. NECK: Supple, trachea midline. No JVD or lymphadenopathy. CARDIOVASCULAR: Regular rate and rhythm without murmurs, gallops, or rubs. RESPIRATORY: Breath sounds equal bilaterally. No accessory muscle use. Exp rhonchi GASTROINTESTINAL: Abdomen soft, non-tender, nondistended. MUSCULOSKELETAL: No cyanosis, or edema. BACK: Nontender without obvious deformity. No CVA tenderness. A/P Assessment and Plan Br. Asthma exac Bronchitis Bronchiectesis Eiosinophilia Hypoxia PLAN: IV Steroids Cont Abx Aerosol nebs Supplement 02 to keep sat >90% Kirk Calderon MD Jun 25, 2017 19:19
[2017-06-25] MEDS: QUEtiapine FUMARATE 200 MG TAB PO SCH (21:30)
[2017-06-25] MEDS: methylPREDNISolone SOD SUCC 40 MG/1 ML VIAL IV PUSH SCH (21:31)
[2017-06-26] VITALS (7 sets, daily range): BP systolic 115–139; BP diastolic 61–89; PULSE 98–110; RESP 18–21; TEMP 96.5–97.2; O2SAT 92–96
[2017-06-26] MEDS: RESP: ALBUTEROL 2.5 MG/IPRATROPIUM 0.5 MG NEB (SCH) NEB ×6 (04:07→23:35)
[2017-06-26] MEDS: methylPREDNISolone SOD SUCC 40 MG/1 ML VIAL IV PUSH SCH ×3 (05:37→20:34)
[2017-06-26] MEDS: SODIUM CHLORIDE 0.9% FLUSH 10 ML FLUSH IV FLUSH SCH ×2 (08:06→20:35)
[2017-06-26] MEDS: CLOPIDOGREL 75 MG TAB PO SCH (08:51)
[2017-06-26] MEDS: LACTOBACILLUS ACIDOPHILUS TAB PO SCH ×3 (08:51→17:35)
[2017-06-26] MEDS: PANTOPRAZOLE SOD 40 MG DELAYED RELEASE TAB PO SCH (08:52)
[2017-06-26] MEDS: BUDESONIDE-FORMOTEROL 160/4.5 MCG INHALER INH SCH ×2 (08:52→20:35)
[2017-06-26] MEDS: ENOXAPARIN SODIUM 40 MG/0.4 ML SYRINGE SQ SCH (08:54)
[2017-06-26] MEDS: LEVOFLOXACIN 750 MG PREMIX INJ 150 ML IV SCH (17:36)
--- NOTE | 2017-06-26 17:36 | HHI.PR ---
Subjective Remarks 51 YOWM with br asthma exac, bronchitis, hypoxia On 02 5LNC Desaturates on ambulation no fever Ambulates in hallway Objective Vital Signs Vital Signs Date Time Temp Pulse Resp B/P (MAP) Pulse Ox O2 Delivery O2 Flow Rate FiO2 06/26/17 16:00 96.5 101 21 121/78 (92) 92 06/26/17 12:00 97.0 101 20 118/73 (88) 92 06/26/17 09:56 Nasal Cannula 6.00 06/26/17 08:00 96.6 98 20 123/69 (87) 92 06/26/17 07:32 93 Nasal Cannula 6.00 06/26/17 00:00 97.1 110 18 115/61 (79) 93 06/25/17 20:00 Nasal Cannula 6.00 06/25/17 20:00 98.0 110 18 140/85 (103) 93 06/25/17 19:58 93 Nasal Cannula 6.00 06/25/17 18:57 97.0 97 18 133/90 (104) 93 I/O 06/25/17 06/25/17 06/25/17 06/26/17 06/26/17 06/26/17 07:00 15:00 23:00 07:00 15:00 23:00 Intake Total 240 ml 350 ml 120 ml 960 ml Output Total 700 ml Balance -460 ml 350 ml 120 ml 960 ml Intake Oral 240 ml 200 ml 120 ml 960 ml IV Total 150 ml Output Urine Total 700 ml # Voids 3 1 3 # Bowel Movements 0 0 Result Diagram: 06/25/1743906/25/17439 Objective Remarks GENERAL: WBWn WM, mild sob SKIN: Warm and dry. HEAD: Normocephalic. EYES: No scleral icterus. No injection or drainage. NECK: Supple, trachea midline. No JVD or lymphadenopathy. CARDIOVASCULAR: Regular rate and rhythm without murmurs, gallops, or rubs. RESPIRATORY: Breath sounds equal bilaterally. No accessory muscle use. Exp rhonchi GASTROINTESTINAL: Abdomen soft, non-tender, nondistended. MUSCULOSKELETAL: No cyanosis, or edema. BACK: Nontender without obvious deformity. No CVA tenderness. A/P Assessment and Plan Br. Asthma exac Bronchitis Bronchiectesis Eiosinophilia Hypoxia PLAN: IV Steroids Cont Abx Aerosol nebs Supplement 02 to keep sat >90% DW Pt and may need home 02 Kirk Calderon MD Jun 26, 2017 17:36
--- NOTE | 2017-06-26 19:48 | HHI.PR ---
Subjective Remarks Patient stated that shortness of breath is still present but improving. Denies fevers or chills. Satting 92% on 6 L nasal cannula Denies abdominal pain, nausea, vomiting or diarrhea. Objective Vitals Vital Signs Date Time Temp Pulse Resp B/P (MAP) Pulse Ox O2 Delivery O2 Flow Rate FiO2 06/26/17 16:00 96.5 101 21 121/78 (92) 92 06/26/17 12:00 97.0 101 20 118/73 (88) 92 06/26/17 09:56 Nasal Cannula 6.00 06/26/17 08:00 96.6 98 20 123/69 (87) 92 06/26/17 07:32 93 Nasal Cannula 6.00 06/26/17 00:00 97.1 110 18 115/61 (79) 93 06/25/17 20:00 Nasal Cannula 6.00 06/25/17 20:00 98.0 110 18 140/85 (103) 93 06/25/17 19:58 93 Nasal Cannula 6.00 I/O 06/25/17 06/25/17 06/25/17 06/26/17 06/26/17 06/26/17 07:00 15:00 23:00 07:00 15:00 23:00 Intake Total 240 ml 350 ml 120 ml 960 ml Output Total 700 ml Balance -460 ml 350 ml 120 ml 960 ml Intake Oral 240 ml 200 ml 120 ml 960 ml IV Total 150 ml Output Urine Total 700 ml # Voids 3 1 3 # Bowel Movements 0 0 Result Diagram: 06/25/17 0440 06/25/17 0440 Imaging Last Impressions Chest X-Ray 06/24/17 0210 Signed Impressions: Service Date/Time: Saturday, June 24, 2017 02:43 - CONCLUSION: 1. No active disease. Jeyson Navarro MD CT Angiography 06/24/17 0000 Signed Impressions: Service Date/Time: Saturday, June 24, 2017 11:28 - CONCLUSION: 1. No CT evidence for pulmonary artery embolism. 2. Bronchial wall thickening, bronchial opacification, and focal bronchiectasis most prominently in the right upper lobe, right middle lobe and lingula with associated nodular opacities most prominent in the right upper lobe, lingula, and medial right lower lobe. Overall findings are most consistent with an inflammatory/infectious etiology including allergic bronchopulmonary aspergillosis. Consider pulmonary consultation. Richard Joyner MD Objective Remarks AAOx3, nad sitting in bed diffuse bilateral exp wheezing improved from previous days. no edema in legs no jvd Medications and IVs Current Medications Medications (Trade) Dose Ordered Sig/Collin Route Start Time Stop Time Status Last Admin (NS Flush) 2 ml BID IV FLUSH 06/24/17 21:00 06/25/17 21:30 (NS Flush) 2 ml UNSCH PRN IV FLUSH 06/24/17 10:45 (Albuterol Neb) 2.5 mg Q2HR NEB PRN NEB 06/24/17 10:45 (Duoneb Neb) 1 ampule Q4HR NEB NEB 06/24/17 12:00 06/26/17 14:46 (Lovenox Inj) 40 mg Q24H SQ 06/24/17 11:00 06/26/17 08:54 (Plavix) 75 mg DAILY PO 06/25/17 09:00 06/26/17 08:51 (Imitrex Inj) 6 mg ONCE PRN SQ 06/24/17 10:45 07/01/17 10:44 (Protonix) 40 mg DAILY PO 06/25/17 09:00 06/26/17 08:52 (Symbicort 160-4.5 Inh) 2 puff Q12HR INH 06/24/17 21:00 06/26/17 08:52 (Mag-Al Plus Susp Liq) 30 ml Q6H PRN PO 06/24/17 16:45 06/24/17 23:24 (SEROquel) 200 mg HS PO 06/24/17 23:29 06/25/17 21:30 (SoluMEDROL INJ) 40 mg Q8HR IV PUSH 06/25/17 22:00 06/26/17 14:31 Levofloxacin/ Dextrose 150 ml @ 100 mls/hr Q24H IV 06/25/17 18:00 06/26/17 17:36 (Lactinex) 1 tab TID PO 06/25/17 18:00 06/26/17 17:35 Urinary Catheter: No Vascular Central Line Catheter: No A/P Problem List: (1) Acute asthma exacerbation ICD Code: J45.901 - Unspecified asthma with (acute) exacerbation (2) Severe asthma ICD Code: J45.998 - Severe asthma Status: Acute (3) Acute hypoxemic respiratory failure ICD Code: J96.01 - Acute respiratory failure with hypoxia Assessment and Plan Continue to monitor on the medical floor. Continue supplemental oxygen to keep oxygen saturation more than 92%. Continue IV steroids - 40 mg IV every 8 hours. Continue IV Levaquin Monitor cbc w diff appreciate pulmonary recommendations - might need bronch to r/o pulmonary aspergillosis So far blood cultures negative 2. Negative flu A and B antigen Check hemoglobin A1c for hyperglycemia Discharge Planning Discharge pending clinical improvement and pulmonology clearance. Milan Holden MD Jun 26, 2017 19:48
[2017-06-26] MEDS: QUEtiapine FUMARATE 200 MG TAB PO SCH (20:35)
[2017-06-26 21:07] LABS: HEMOGLOBIN A1a 1.3 %; HEMOGLOBIN A1b 1.7 %; HEMOGLOBIN Ao 85.2 %; HEMOGLOBIN LA1C 2.1 %; HEMOGLOBIN P3 3.6 %
[2017-06-27] VITALS (9 sets, daily range): BP systolic 118–142; BP diastolic 75–95; PULSE 89–103; RESP 16–20; TEMP 96.3–97.6; O2SAT 91–96
[2017-06-27] MEDS: RESP: ALBUTEROL 2.5 MG/IPRATROPIUM 0.5 MG NEB (SCH) NEB ×5 (04:11→21:54)
[2017-06-27] MEDS: methylPREDNISolone SOD SUCC 40 MG/1 ML VIAL IV PUSH SCH ×2 (05:43→15:37)
[2017-06-27] MEDS: SODIUM CHLORIDE 0.9% FLUSH 10 ML FLUSH IV FLUSH SCH ×2 (08:03→20:54)
[2017-06-27 08:11] LABS: AUTOMATED NEUTROPHIL # 10.6 TH/MM3 (1.8-7.7); BASOPHIL % 0.1 % (0.0-2.0); EOSINOPHIL % 0.1 % (0.0-4.0); LYMPH % 8.5 % (9.0-44.0); MEAN CELL VOLUME 93.9 FL (80.0-100.0); MEAN CORPUSCULAR HGB CONC 35.1 % (32.0-36.0); MONO % 4.5 % (0.0-8.0); NEUT % 86.8 % (16.0-70.0); PLATELET COUNT 214 TH/MM3 (150-450); RED BLOOD COUNT 4.36 MIL/MM3 (4.50-5.90); RED CELL DISTRIBUTION WIDTH 12.6 % (11.6-17.2); WHITE BLOOD COUNT 12.1 TH/MM3 (4.0-11.0)
[2017-06-27 08:25] LABS: CHLORIDE 106 MEQ/L (98-107); POTASSIUM 4.4 MEQ/L (3.5-5.1); SODIUM (NA) 141 MEQ/L (136-145)
[2017-06-27 08:32] LABS: ANION GAP 8 MEQ/L (5-15); BICARBONATE 26.6 MEQ/L (21.0-32.0); MAGNESIUM 2.4 MG/DL (1.5-2.5)
[2017-06-27 08:33] LABS: BLOOD UREA NITROGEN 18 MG/DL (7-18)
[2017-06-27 08:35] LABS: ALT (GPT) 34 U/L (12-78); AST (GOT) 19 U/L (15-37); HEMO FLAGS DIFF FINAL
[2017-06-27 08:36] LABS: GLOMERULAR FILTRATION RATE 87 ML/MIN (>89); TOTAL BILIRUBIN ADULT 0.3 MG/DL (0.2-1.0)
[2017-06-27 08:38] LABS: ALKALINE PHOSPHATASE 48 U/L (45-117)
[2017-06-27] MEDS: BUDESONIDE-FORMOTEROL 160/4.5 MCG INHALER INH SCH ×2 (09:00→21:00)
[2017-06-27] MEDS: LACTOBACILLUS ACIDOPHILUS TAB PO SCH ×2 (09:41→15:35)
[2017-06-27] MEDS: CLOPIDOGREL 75 MG TAB PO SCH (09:41)
[2017-06-27] MEDS: PANTOPRAZOLE SOD 40 MG DELAYED RELEASE TAB PO SCH (09:41)
[2017-06-27] MEDS: ENOXAPARIN SODIUM 40 MG/0.4 ML SYRINGE SQ SCH (09:43)
--- NOTE | 2017-06-27 15:15 | HHI.PR ---
Subjective Remarks sob is improving denies cp on 4 liters nasal canula Objective Vitals Vital Signs Date Time Temp Pulse Resp B/P (MAP) Pulse Ox O2 Delivery O2 Flow Rate FiO2 06/27/17 11:35 97.6 91 18 118/82 (94) 94 06/27/17 10:31 Nasal Cannula 5.00 06/27/17 08:00 97.1 89 18 119/78 (92) 95 06/27/17 07:45 93 Nasal Cannula 4.00 06/27/17 07:32 95 Nasal Cannula 5.00 06/27/17 04:11 95 Nasal Cannula 5.00 06/27/17 00:00 96.5 99 16 122/75 (91) 96 06/26/17 20:15 93 Nasal Cannula 6.00 06/26/17 20:00 97.2 99 18 139/89 (106) 96 06/26/17 16:00 96.5 101 21 121/78 (92) 92 I/O 06/26/17 06/26/17 06/26/17 06/27/17 06/27/17 06/27/17 07:00 15:00 23:00 07:00 15:00 23:00 Intake Total 120 ml 960 ml 480 ml 220 ml 1140 ml Balance 120 ml 960 ml 480 ml 220 ml 1140 ml Intake Oral 120 ml 960 ml 480 ml 220 ml 1140 ml # Voids 1 3 2 1 3 # Bowel Movements 0 0 Result Diagram: 06/27/17 0740 06/27/17 0740 Imaging Last Impressions Chest X-Ray 06/24/17 0210 Signed Impressions: Service Date/Time: Saturday, June 24, 2017 02:43 - CONCLUSION: 1. No active disease. Jeyson Navarro MD CT Angiography 06/24/17 0000 Signed Impressions: Service Date/Time: Saturday, June 24, 2017 11:28 - CONCLUSION: 1. No CT evidence for pulmonary artery embolism. 2. Bronchial wall thickening, bronchial opacification, and focal bronchiectasis most prominently in the right upper lobe, right middle lobe and lingula with associated nodular opacities most prominent in the right upper lobe, lingula, and medial right lower lobe. Overall findings are most consistent with an inflammatory/infectious etiology including allergic bronchopulmonary aspergillosis. Consider pulmonary consultation. Richard Joyner MD Objective Remarks AAOx3, nad sitting in bed Decrease breath sounds but with better aereation with diffuse expiratory wheezing. no edema in legs no jvd Medications and IVs Current Medications Medications (Trade) Dose Ordered Sig/Collin Route Start Time Stop Time Status Last Admin (NS Flush) 2 ml BID IV FLUSH 06/24/17 21:00 06/27/17 20:54 (NS Flush) 2 ml UNSCH PRN IV FLUSH 06/24/17 10:45 (Albuterol Neb) 2.5 mg Q2HR NEB PRN NEB 06/24/17 10:45 (Duoneb Neb) 1 ampule Q4HR NEB NEB 06/24/17 12:00 06/28/17 07:45 (Lovenox Inj) 40 mg Q24H SQ 06/24/17 11:00 06/27/17 09:43 (Plavix) 75 mg DAILY PO 06/25/17 09:00 06/27/17 09:41 (Imitrex Inj) 6 mg ONCE PRN SQ 06/24/17 10:45 07/01/17 10:44 (Protonix) 40 mg DAILY PO 06/25/17 09:00 06/27/17 09:41 (Symbicort 160-4.5 Inh) 2 puff Q12HR INH 06/24/17 21:00 06/27/17 21:00 (Mag-Al Plus Susp Liq) 30 ml Q6H PRN PO 06/24/17 16:45 06/24/17 23:24 (SEROquel) 200 mg HS PO 06/24/17 23:29 06/27/17 20:54 (Lactinex) 1 tab TID PO 06/25/17 18:00 06/27/17 15:35 (Levaquin) 750 mg DAILY PO 06/28/17 09:00 (Deltasone) 20 mg BID PO 06/27/17 21:00 06/27/17 20:53 A/P Problem List: (1) Acute asthma exacerbation ICD Code: J45.901 - Unspecified asthma with (acute) exacerbation (2) Severe asthma ICD Code: J45.998 - Severe asthma Status: Acute (3) Acute hypoxemic respiratory failure ICD Code: J96.01 - Acute respiratory failure with hypoxia Assessment and Plan Continue to monitor on the medical floor. Continue supplemental oxygen to keep oxygen saturation more than 92%. Continue IV steroids - taper as per pumonology Continue IV Levaquin Monitor cbc w diff appreciate pulmonary recommendations - might need bronch to r/o pulmonary aspergillosis So far blood cultures negative 2. Negative flu A and B antigen Check hemoglobin A1c for hyperglycemia - 5.6 diabetes ruled out Discharge Planning Discharge pending clinical improvement and pulmonology clearance. Milan Holden MD Jun 27, 2017 15:15
[2017-06-27] MEDS: LEVOFLOXACIN 750 MG PREMIX INJ 150 ML IV SCH (15:37)
--- NOTE | 2017-06-27 18:55 | HHI.PR ---
Subjective Remarks 51 YOWM with br asthma exac, bronchitis, hypoxia On 02 4LNC Desaturates on ambulation no fever Ambulates in hallway Feels much better Anxious to go home Objective Vital Signs Vital Signs Date Time Temp Pulse Resp B/P (MAP) Pulse Ox O2 Delivery O2 Flow Rate FiO2 06/27/17 16:00 96.3 103 18 127/80 (96) 91 06/27/17 11:35 97.6 91 18 118/82 (94) 94 06/27/17 10:31 Nasal Cannula 5.00 06/27/17 08:00 97.1 89 18 119/78 (92) 95 06/27/17 07:45 93 Nasal Cannula 4.00 06/27/17 07:32 95 Nasal Cannula 5.00 06/27/17 04:11 95 Nasal Cannula 5.00 06/27/17 00:00 96.5 99 16 122/75 (91) 96 06/26/17 20:15 93 Nasal Cannula 6.00 06/26/17 20:00 97.2 99 18 139/89 (106) 96 I/O 06/26/17 06/26/17 06/26/17 06/27/17 06/27/17 06/27/17 07:00 15:00 23:00 07:00 15:00 23:00 Intake Total 120 ml 960 ml 480 ml 220 ml 1140 ml Balance 120 ml 960 ml 480 ml 220 ml 1140 ml Intake Oral 120 ml 960 ml 480 ml 220 ml 1140 ml # Voids 1 3 2 1 3 # Bowel Movements 0 0 Result Diagram: 06/27/17 0740 06/27/17 0740 Objective Remarks GENERAL: WBWn WM, mild sob SKIN: Warm and dry. HEAD: Normocephalic. EYES: No scleral icterus. No injection or drainage. NECK: Supple, trachea midline. No JVD or lymphadenopathy. CARDIOVASCULAR: Regular rate and rhythm without murmurs, gallops, or rubs. RESPIRATORY: Breath sounds equal bilaterally. No accessory muscle use. Exp rhonchi GASTROINTESTINAL: Abdomen soft, non-tender, nondistended. MUSCULOSKELETAL: No cyanosis, or edema. BACK: Nontender without obvious deformity. No CVA tenderness. A/P Assessment and Plan Br. Asthma exac Bronchitis Bronchiectesis Eiosinophilia Hypoxia PLAN: Aerosol nebs Supplement 02 to keep sat >90% DW Pt and DC Solumedrol Prednisone 20 mg bid Change to PO Levaquin 750 mg daily may need home 02 Plan to dc home in AM Kirk Calderon MD Jun 27, 2017 18:55
[2017-06-27] MEDS: predniSONE 20 MG TAB PO SCH (20:53)
[2017-06-27] MEDS: QUEtiapine FUMARATE 200 MG TAB PO SCH (20:54)
[2017-06-28] VITALS (8 sets, daily range): BP systolic 105–136; BP diastolic 65–86; PULSE 84–105; RESP 16–20; TEMP 96–98.9; O2SAT 92–96
[2017-06-28] MEDS: RESP: ALBUTEROL 2.5 MG/IPRATROPIUM 0.5 MG NEB (SCH) NEB ×4 (04:33→11:27)
[2017-06-28] MEDS ORDERED: OXYGENDME NAS.CANULA (08:44)
[2017-06-28] MEDS ORDERED: LEVOFLOXACIN 750 MG TAB PO SCH (09:00)
[2017-06-28] MEDS: BUDESONIDE-FORMOTEROL 160/4.5 MCG INHALER INH SCH ×2 (09:36→20:41)
[2017-06-28] MEDS: LACTOBACILLUS ACIDOPHILUS TAB PO SCH ×3 (09:36→17:56)
[2017-06-28] MEDS: SODIUM CHLORIDE 0.9% FLUSH 10 ML FLUSH IV FLUSH SCH ×2 (09:36→20:41)
[2017-06-28] MEDS: CLOPIDOGREL 75 MG TAB PO SCH (09:36)
[2017-06-28] MEDS: predniSONE 20 MG TAB PO SCH ×2 (09:37→20:41)
[2017-06-28] MEDS: PANTOPRAZOLE SOD 40 MG DELAYED RELEASE TAB PO SCH (09:37)
[2017-06-28] MEDS: ENOXAPARIN SODIUM 40 MG/0.4 ML SYRINGE SQ SCH (12:35)
--- NOTE | 2017-06-28 15:21 | HHI.PR ---
Subjective Remarks 51 YOWM with br asthma exac, bronchitis, hypoxia On 02 3LNC Desaturates on ambulation no fever Ambulates in hallway Feels much better Anxious to go home Objective Vital Signs Vital Signs Date Time Temp Pulse Resp B/P (MAP) Pulse Ox O2 Delivery O2 Flow Rate FiO2 06/28/17 12:00 96.0 105 16 121/75 (90) 92 06/28/17 08:00 96.6 96 16 113/73 (86) 92 06/28/17 08:00 97 Nasal Cannula 3.00 06/28/17 07:48 96 Nasal Cannula 4.00 06/28/17 04:33 94 Nasal Cannula 4.00 06/28/17 00:00 97.6 84 18 105/65 (78) 96 06/27/17 21:54 95 Nasal Cannula 4.00 06/27/17 20:00 97.2 92 20 142/95 (111) 94 06/27/17 16:00 96.3 103 18 127/80 (96) 91 I/O 06/27/17 06/27/17 06/27/17 06/28/17 06/28/17 06/28/17 07:00 15:00 23:00 07:00 15:00 23:00 Intake Total 220 ml 1140 ml 620 ml 480 ml 960 ml Balance 220 ml 1140 ml 620 ml 480 ml 960 ml Intake Oral 220 ml 1140 ml 620 ml 480 ml 960 ml # Voids 1 3 1 2 3 # Bowel Movements 0 0 0 1 Result Diagram: 06/27/17 0740 06/27/17 0740 Objective Remarks GENERAL: WBWn WM, mild sob SKIN: Warm and dry. HEAD: Normocephalic. EYES: No scleral icterus. No injection or drainage. NECK: Supple, trachea midline. No JVD or lymphadenopathy. CARDIOVASCULAR: Regular rate and rhythm without murmurs, gallops, or rubs. RESPIRATORY: Breath sounds equal bilaterally. No accessory muscle use. Exp rhonchi GASTROINTESTINAL: Abdomen soft, non-tender, nondistended. MUSCULOSKELETAL: No cyanosis, or edema. BACK: Nontender without obvious deformity. No CVA tenderness. A/P Assessment and Plan Br. Asthma exac Bronchitis Bronchiectesis Eiosinophilia Hypoxia PLAN: Aerosol nebs Supplement 02 to keep sat >90% DW Pt Prednisone 20 mg bid Change to PO Levaquin 750 mg daily Arrange home 02 Stable from pulm standpoint to dc FU with Dr.Wahba Calderon,Kirk Caceres MD Jun 28, 2017 15:21
[2017-06-28] MEDS: RESP: ALBUTEROL 2.5 MG/3 ML NEB (PRN) NEB ×2 (16:31→21:08)
[2017-06-28] MEDS ORDERED: PRED20 PO ×2 (16:59→21:04)
[2017-06-28] MEDS ORDERED: LEVA750T9 PO ×2 (16:59→20:38)
[2017-06-28] MEDS ORDERED: LACT PO (16:59)
--- NOTE | 2017-06-28 17:03 | HHI.DCPOC ---
Discharge Care Plan Diagnosis: (1) Hypoxemia (2) Severe asthma (3) Acute hypoxemic respiratory failure (4) Acute asthma exacerbation Goals to Promote Your Health * To prevent worsening of your condition and complications * To maintain your health at the optimal level Directions to Meet Your Goals Take your medications as prescribed Follow your dietary instruction Follow activity as directed Keep your appointments as scheduled Take your immunizations and boosters as scheduled If your symptoms worsen call your PCP, if no PCP go to Urgent Care Center or Emergency Room Smoking is Dangerous to Your Health. Avoid second hand smoke Call the 24-hour hour crisis hotline for domestic abuse at Milan Holden MD Jun 28, 2017 17:03
--- NOTE | 2017-06-28 17:04 | HHI.DS ---
Discharge Summary Admission Date Jun 24, 2017 at 09:52 Discharge Date: Jun 28, 2017 Admitting Diagnosis Severe Asthma (1) Acute asthma exacerbation ICD Code: J45.901 - Unspecified asthma with (acute) exacerbation (2) Severe asthma ICD Code: J45.998 - Severe asthma Status: Acute (3) Acute hypoxemic respiratory failure ICD Code: J96.01 - Acute respiratory failure with hypoxia Procedures none Brief History - From Admission 51-year-old male with a medical history significant for asthma, anxiety, TIA, hypertension who presented with severe shortness of breath. Patient reports for the past 4-6 weeks he has been having persistent shortness of breath. He believes this started as a common cold. He has been followed by his senior foreman Dr. Higgins and has been tried on steroids and many different inhalers without much relief. His symptoms got worse yesterday which brought him to the emergency room. He has been having a persistent cough as well. He denies chest pain or pressure. In the emergency room, the patient was found to be hypoxemic. He has been requiring oxygen. CBC/BMP: 06/27/17 0740 06/27/17 0740 Significant Findings Laboratory Tests Test 06/26/17 13:54 06/27/17 07:40 White Blood Count 12.1 TH/MM3 (4.0-11.0) Red Blood Count 4.36 MIL/MM3 (4.50-5.90) Neutrophils (%) (Auto) 86.8 % (16.0-70.0) Lymphocytes (%) (Auto) 8.5 % (9.0-44.0) Neutrophils # (Auto) 10.6 TH/MM3 (1.8-7.7) Random Glucose 110 MG/DL (74-106) Phosphorus Level 2.4 MG/DL (2.5-4.9) Estimat Glomerular Filtration Rate 87 ML/MIN (>89) Imaging Last Impressions Chest X-Ray 06/24/17 0210 Signed Impressions: Service Date/Time: Saturday, June 24, 2017 02:43 - CONCLUSION: 1. No active disease. Jeyson Navarro MD CT Angiography 06/24/17 0000 Signed Impressions: Service Date/Time: Saturday, June 24, 2017 11:28 - CONCLUSION: 1. No CT evidence for pulmonary artery embolism. 2. Bronchial wall thickening, bronchial opacification, and focal bronchiectasis most prominently in the right upper lobe, right middle lobe and lingula with associated nodular opacities most prominent in the right upper lobe, lingula, and medial right lower lobe. Overall findings are most consistent with an inflammatory/infectious etiology including allergic bronchopulmonary aspergillosis. Consider pulmonary consultation. Richard Joyner MD PE at Discharge AAOx3, nad sitting in bed Decrease breath sounds but with better aereation with diffuse expiratory wheezing. no edema in legs no jvd Pt Condition on Discharge: Stable Discharge Disposition: Discharge Home Discharge Instructions DIET: Follow Instructions for: As Tolerated, No Restrictions Activities you can perform: Regular-No Restrictions Activities to Avoid: Prolonged Standing, Strenuous Activity Follow up Referrals: PCP Follow-up - 1 Week Pulmonology - 2 Weeks New Medications: Oxygen (O2) (Oxygen (O2)) Device LITER LOREN.CANULA CONTINUOUS for Prevent Hypoxemia, #2 Oxygen Concentrator Portable Gaseous 2 L/min via Nasal Canula Continuous For 99 months Prednisone (Prednisone) 20 Mg Tab 20 MG PO DIRECTED for Inflammation, #11 TAB 0 Refills 40 MG twice a day x 3 days, then 20 MG daily x 3 days, then 10 MG daily x 3 days Budesonide-Formoterol Inh (Symbicort Inh) 160-4.5 Mcg/Act Aero 2 PUFF INH Q12HR for Shortness of Breath, #1 INHALER Lactobacillus Acidophilus (Acidophilus/l-Sporogenes) 35 Million Cell-25 Million Cell Tab 1 TAB PO TID for Infection, #30 TAB Levofloxacin (Levaquin) 750 Mg Tablet 750 MG PO DAILY for Infection, #6 TAB-CAP Continued Medications: Clopidogrel (Clopidogrel) 75 Mg Tab 75 MG PO DAILY for Blood Clot Prevention, #30 TAB 0 Refills Indacaterol/Glycopyrrolate (Utibron Neohaler 27.5-15.6 Mcg) 27.5 Mcg-15.6 Mcg Cap.w.dev AEROSOL INH BID Quetiapine (Quetiapine) 200 Mg Tab 200 MG PO DAILY, #30 TAB 0 Refills Sumatriptan Inj (Imitrex Inj) 6 Mg/0.5 Ml Inj 6 MG SQ ONCE PRN for MIGRAINE HEADACHE, VIAL 0 Refills May repeat dose in 1 hour if needed. Milan Holden MD Jun 28, 2017 17:04
[2017-06-28] MEDS ORDERED: SYMB80AE INH (20:38)
[2017-06-28] MEDS ORDERED: LACTTAB8 PO ×2 (20:38→20:59)
[2017-06-28] MEDS: QUEtiapine FUMARATE 200 MG TAB PO SCH (20:41)
[2017-06-28] MEDS ORDERED: SYMB160A INH (20:59)
== END 2017-06-28 21:48 | disposition home or self-care (01) | DRG 189 ==
LOC: PHED 01:57 → PHEDA 09:52 → PHICU 14:16 → PH5A 06-25 11:05
PROVIDERS: ADMIT Hospitalist; ATTEND Hospitalist
DX: J96.01 Acute respiratory failure with hypoxia (principal); J45.51 Severe persistent asthma with (acute) exacerbation; I10 Essential (primary) hypertension; K21.9 Gastro-esophageal reflux disease without esophagitis; F41.9 Anxiety disorder, unspecified; F31.9 Bipolar disorder, unspecified; J47.9 Bronchiectasis, uncomplicated; G43.909 Migraine, unspecified, not intractable, without status migrainosus; J40 Bronchitis, not specified as acute or chronic; Z86.73 Personal history of transient ischemic attack (TIA), and cerebral infarction without residual deficits
CPT/HCPCS: 36600; 71010; 71275; 80048; 80053; 82550; 82552; 82805; 83036; 83735; 83880; 84100; 84484; 85025; 85610; 85730; 87040; 87804; 93005; 94620; 94640; 94664; 96361; 96374; J1650; J1956; J2920; J2930; J3475; J7030; J7512; J7613; Q9967